=== PATIENT | female | born 1970 | race Caucasian/White ===

== ENCOUNTER 2019-08-12 06:18 | Emergency (ER) | payer MEDICAID ==
--- NOTE | 2019-08-12 06:28 | EDM.PDOC ---
ED HPI GENERAL MEDICAL PROBLEM - General Stated Complaint: SOB Time Seen by Provider: 08/12/19 06:25 Source of Information: Reports: Patient History Limitations: Reports: No Limitations - History of Present Illness INITIAL COMMENTS - FREE TEXT/NARRATIVE: 49-year-old female who reports beginning on Saturday she noted that she needed to use her inhaler more frequently and she had a rash on her face and neck and upper chest that was quite itchy and red and raised. The rash has come and gone has been fairly persistently coming associated with itching for the past 3 days and today she has noticed some feelings of increased wheezing and trouble breathing. She thinks it might be a new laundry soap that she has changed to as there are really no other exposures she feels. She has no pain. She rates her pain as a 0/10. No nausea or vomiting. No sore throat. No nasal congestion. She has been eating and drinking normally. She is having no trouble swallowing. No weakness or dizziness. There are no other associated signs or symptoms. There are no other modifying factors. She does report that she was started on a new medication for blood pressure about 2 weeks ago. She has had no symptoms until Saturday of this week. There are no other associated signs or symptoms. There are no other modifying factors. Onset: Other (3 days) Duration: Getting Worse Location: Reports: Generalized Quality: Reports: Other (Itching) Severity: Severe Improves with: Reports: None Worsens with: Reports: None Context: Reports: Other (As above) Associated Symptoms: Reports: Nausea/Vomiting (Mild nausea), Shortness of Breath Treatments [employer]TER: Reports: Other (see below) (Albuterol inhaler) - Related Data Allergies Allergy/AdvReac Type Severity Reaction Status Date / Time aspirin Allergy Other Verified 08/12/19 06:41 ibuprofen Allergy Other Verified 08/12/19 06:41 latex Allergy Other Verified 08/12/19 06:41 morphine Allergy Other Verified 08/12/19 06:41 ranitidine [From Zantac] Allergy Other Verified 08/12/19 06:41 Sulfa (Sulfonamide Allergy Other Verified 08/12/19 06:41 Antibiotics) Home Meds: Home Meds diphenhydrAMINE [Benadryl] 50 mg PO QID #20 cap 08/12/19 [Rx] predniSONE [Prednisone] 60 mg PO DAILY 4 Days #12 tablet 08/12/19 [Rx] Past Medical History Cardiovascular History: Reports: Hypertension Respiratory History: Reports: Asthma Social & Family History - Tobacco Use Smoking Status *Q: Current Every Day Smoker - Alcohol Use Alcohol Use History: No - Living Situation & Occupation Occupation: Employed [employer] REACTION - Review of Systems Review Of Systems: See Below Constitutional: Reports: No Symptoms HEENT: Reports: Other (Physical position) Respiratory: Reports: Shortness of Breath, Wheezing Cardiovascular: Reports: No Symptoms Endocrine: Reports: No Symptoms GI/Abdominal: Reports: No Symptoms : Reports: No Symptoms Musculoskeletal: Reports: No Symptoms Skin: Reports: Rash, Urticaria Neurological: Reports: No Symptoms Psychiatric: Reports: No Symptoms Hematologic/Lymphatic: Reports: No Symptoms Immunologic: Reports: No Symptoms ED EXAM GENERAL NO PERIP PULSE - Physical Exam Exam: See Below Exam Limited By: No Limitations General Appearance: Alert, WD/WN Eye Exam: Bilateral Eye: EOMI, Normal Inspection, PERRL Ears: Normal External Exam, Hearing Grossly Normal Nose: Normal Inspection, Normal Mucosa, No Blood Throat/Mouth: Normal Inspection, Normal Lips, Normal Oropharynx, Normal Voice, No Airway Compromise Head: Atraumatic, Normocephalic Neck: Normal Inspection, Supple, Non-Tender, Full Range of Motion, Other ( Stridor) Respiratory/Chest: No Respiratory Distress, No Accessory Muscle Use, Chest Non- Tender, Wheezing, Other (Air movement somewhat decreased) Cardiovascular: Normal Peripheral Pulses, Regular Rate, Rhythm, No JVD GI/Abdominal: Normal Bowel Sounds, Soft, Non-Tender, No Organomegaly Back Exam: Normal Inspection Extremities: Normal Inspection, Normal Range of Motion, Non-Tender, No Pedal Edema, Normal Capillary Refill Neurological: Alert, Oriented, CN II-XII Intact, Normal Cognition, No Motor/ Sensory Deficits Psychiatric: Normal Affect Skin Exam: Warm, Dry, Intact, Normal Color Course - Vital Signs Last Recorded V/S: Last Vital Signs Temp 36.6 C 08/12/19 06:59 Pulse 98 08/12/19 06:59 Resp 14 08/12/19 06:59 BP 148/81 H 08/12/19 06:59 Pulse Ox 98 08/12/19 06:59 - Orders/Labs/Meds Orders: Active Orders 24 hr Category Date Time Status RT Aerosol Therapy [RC] ASDIRECTED Care 08/12/19 06:43 Active Sodium Chloride 0.9% [Normal Saline] 1,000 ml Med 08/12/19 06:45 Active IV ASDIRECTED Sodium Chloride 0.9% [Saline Flush] Med 08/12/19 06:42 Active 10 ml FLUSH ASDIRECTED PRN Peripheral IV Insertion Adult [OM.PC] Routine Oth 08/12/19 06:42 Ordered Medication Orders Sodium Chloride (Normal Saline) 1,000 mls @ 100 mls/hr IV ASDIRECTED MAGGI Last Admin: 08/12/19 06:57 Dose: 100 mls/hr Sodium Chloride (Saline Flush) 10 ml FLUSH ASDIRECTED PRN PRN Reason: Keep Vein Open Last Admin: 08/12/19 07:02 Dose: 10 ml Meds: Medications Generic Name Dose Route Start Last Admin Trade Name Freq PRN Reason Stop Dose Admin Sodium Chloride 1,000 mls @ 100 mls/hr 08/12/19 06:45 08/12/19 06:57 Normal Saline IV 100 mls/hr ASDIRECTED MAGGI Administration Sodium Chloride 10 ml 08/12/19 06:42 08/12/19 07:02 Saline Flush FLUSH 10 ml ASDIRECTED PRN Administration Keep Vein Open Discontinued Medications Generic Name Dose Route Start Last Admin Trade Name Freq PRN Reason Stop Dose Admin Albuterol 2.5 mg 08/12/19 06:42 08/12/19 06:57 Proventil Neb Soln NEB 08/12/19 06:43 2.5 mg ONETIME ONE Administration Albuterol/Ipratropium 3 ml 08/12/19 06:42 08/12/19 06:57 Duoneb 3.0-0.5 Mg/3 Ml NEB 08/12/19 06:43 3 ml ONETIME ONE Administration Diphenhydramine HCl 50 mg 08/12/19 06:42 08/12/19 06:57 Benadryl IVPUSH 08/12/19 06:43 50 mg ONETIME ONE Administration Methylprednisolone Sodium Succinate 125 mg 08/12/19 06:42 08/12/19 06:57 Solu-Medrol IVPUSH 08/12/19 06:43 125 mg ONETIME ONE Administration - Re-Assessments/Exams Free Text/Narrative Re-Assessment/Exam: 08/12/19 08:25: Patient has received Solu-Medrol 125 mg IV, Benadryl 50 mg IV and DuoNeb/albuterol neb combination and has been observed. Her rash is pretty much gone. The wheezing is resolved. She feels much improved and is ready for discharge at this point. Departure - Departure Time of Disposition: 08:45 Disposition: Home, Self-Care 01 Condition: Good (Improved) Clinical Impression: Urticaria, Wheezing Allergic reaction Qualifiers: Encounter type: initial encounter Qualified Code(s): T78.40XA - Allergy, unspecified, initial encounter - Discharge Information Prescriptions: diphenhydrAMINE [Benadryl] 50 mg PO QID #20 cap predniSONE [Prednisone] 60 mg PO DAILY 4 Days #12 tablet Instructions: Hives, [id number], Allergies, Adult Referrals: PCP,Unknown [Primary Care Provider] - Additional Instructions: You are having an allergic reaction with hives and some wheezing. As you our thinking, this may be related to the new laundry soap that you started using. You should avoid using this in the future. Use your albuterol inhaler as needed. Medication as prescribed (Benadryl 50 mg, prednisone). Drink plenty of fluids. Rest. Back to the emergency department for worsening rash, worse breathing or any other concerning sign or symptom. Sepsis Event Note - Focused Exam Vital Signs: Vital Signs Temp Pulse Resp BP Pulse Ox 08/12/19 06:59 36.6 C 98 14 148/81 H 98 Date Exam was Performed: 08/12/19 Time Exam was Performed: 08:50 - My Orders Last 24 Hours: My Active Orders 08/12/19 06:42 Sodium Chloride 0.9% [Saline Flush] 10 ml FLUSH ASDIRECTED PRN Peripheral IV Insertion Adult [OM.PC] Routine 08/12/19 06:43 RT Aerosol Therapy [RC] ASDIRECTED 08/12/19 06:45 Sodium Chloride 0.9% [Normal Saline] 1,000 ml IV ASDIRECTED - Assessment/Plan Last 24 Hours: My Active Orders 08/12/19 06:42 Sodium Chloride 0.9% [Saline Flush] 10 ml FLUSH ASDIRECTED PRN Peripheral IV Insertion Adult [OM.PC] Routine 08/12/19 06:43 RT Aerosol Therapy [RC] ASDIRECTED 08/12/19 06:45 Sodium Chloride 0.9% [Normal Saline] 1,000 ml IV ASDIRECTED
[2019-08-12] MEDS ORDERED: Albuterol 0.083% 2.5 MG/3 ML Neb Soln NEB ONE (06:42)
[2019-08-12] MEDS ORDERED: Albuterol/Ipratropium 3.0-0.5 MG/3 ML Neb Soln NEB ONE (06:42)
[2019-08-12] MEDS ORDERED: Sodium Chloride 0.9% 10 ML Syringe FLUSH PRN (06:42)
[2019-08-12] MEDS ORDERED: diphenhydrAMINE 50 MG/ML SDV IVPUSH ONE (06:42)
[2019-08-12] MEDS ORDERED: methylPREDNISolone Sodium Succinate 125 MG/2 ML SDV IVPUSH ONE (06:42)
[2019-08-12] MEDS ORDERED: Sodium Chloride 0.9% 1,000 ML IV SCH (06:45)
== END 2019-08-12 09:30 | disposition home or self-care (01) ==
LOC: FB.ED 06:18
DX: L50.0 Allergic urticaria (principal); R06.2 Wheezing; I10 Essential (primary) hypertension; J45.909 Unspecified asthma, uncomplicated; F17.200 Nicotine dependence, unspecified, uncomplicated; Z88.6 Allergy status to analgesic agent; Z88.5 Allergy status to narcotic agent; Z88.8 Allergy status to other drugs, medicaments and biological substances; Z91.040 Latex allergy status; Z88.2 Allergy status to sulfonamides; Z79.52 Long term (current) use of systemic steroids
CPT/HCPCS: 94640; 96361; 96374; 96375; 99284; J1200; J2930; J7030; J7620-GY

== ENCOUNTER 2020-04-16 16:23 | Emergency (ER) | payer MEDICAID, OTHER ==
[2020-04-16] MEDS ORDERED: Budesonide 0.5 MG/2 ML Neb Susp NEB ONE (16:34)
[2020-04-16] MEDS ORDERED: methylPREDNISolone Sodium Succinate 125 MG/2 ML SDV ONE (16:34)
[2020-04-16] MEDS ORDERED: methylPREDNISolone Sodium Succinate 125 MG/2 ML SDV IM ONE (16:34)
[2020-04-16] MEDS ORDERED: Albuterol/Ipratropium 3.0-0.5 MG/3 ML Neb Soln NEB ONE ×2 (16:34→17:05)
--- NOTE | 2020-04-16 16:40 | EDM.PDOC ---
ED HPI GENERAL MEDICAL PROBLEM - General Chief Complaint: Allergic Reaction Stated Complaint: BEE STING Time Seen by Provider: 04/16/20 16:35 Source of Information: Reports: Patient History Limitations: Reports: No Limitations - History of Present Illness INITIAL COMMENTS - FREE TEXT/NARRATIVE: states she was just stung by a bee : not 30mins before getting to ER has had bee sting before and she is allergic to bees had stung her on the left 2nd toe Also developed wheezing immediately , did take benadryl before coming to the ER Onset: Today Onset Date: 04/16/20 Onset Time: 16:00 Duration: Getting Worse Location: Reports: Face, Neck, Chest, Lower Extremity, Left Quality: Reports: Burning Severity: Moderate Improves with: Reports: Cold Therapy Context: Reports: Other (stung by bee on her left otoe) Associated Symptoms: Reports: Cough, Rash, Weakness Treatments [employer]PER[employer]OR [employer]: Reports: Other (see below) (benadryl) 2nd toe at the left foot Pain Score (Numeric/FACES): 9 - Related Data Allergies Allergy/AdvReac Type Severity Reaction Status Date / Time aspirin Allergy Other Verified 04/16/20 18:23 ibuprofen Allergy Other Verified 04/16/20 18:23 latex Allergy Other Verified 04/16/20 18:23 morphine Allergy Other Verified 04/16/20 18:23 ranitidine [From Zantac] Allergy Other Verified 04/16/20 18:23 Sulfa (Sulfonamide Allergy Other Verified 04/16/20 18:23 Antibiotics) Home Meds: Home Meds Albuterol Sulfate 1 applic IH QID PRN 08/12/19 [History] Budesonide/Formoterol [Symbicort 80-4.5 MCG] 1 puff INH BID 08/12/19 [History] Losartan/Hydrochlorothiazide [Losartan-HCTZ 50-12.5 MG] 1 each PO DAILY 08/12/19 [History] diphenhydrAMINE [Benadryl] 50 mg PO QID #20 cap 08/12/19 [Rx] predniSONE [Prednisone] 60 mg PO DAILY 4 Days #12 tablet 08/12/19 [Rx] Albuterol [Proventil Neb Soln] 2.5 mg NEB Q6HR #1 box 04/16/20 [Rx] Triamcinolone Acetonide [Triamcinolone Acetonide 0.5% Oint] 15 gm TOP BID #2 tube 04/16/20 [Rx] predniSONE [Prednisone] 50 mg PO DAILY #5 tablet 04/16/20 [Rx] Past Medical History Cardiovascular History: Reports: Hypertension Respiratory History: Reports: Asthma Musculoskeletal History: Reports: Other (See Below) Other Musculoskeletal History: osteomylitis - Past Surgical History HEENT Surgical History: Reports: Adenoidectomy, Myringotomy w Tube(s), Tonsillectomy GI Surgical History: Reports: Appendectomy, Cholecystectomy Social & Family History - Living Situation & Occupation Occupation: Employed [employer] REACTION - Review of Systems Review Of Systems: See Below Constitutional: Reports: No Symptoms HEENT: Reports: No Symptoms, Rhinitis. Denies: Throat Pain, Throat Swelling Respiratory: Reports: Shortness of Breath, Wheezing, Cough, Sputum. Denies: Pleuritic Chest Pain Cardiovascular: Reports: No Symptoms Endocrine: Reports: No Symptoms GI/Abdominal: Reports: No Symptoms : Reports: No Symptoms Musculoskeletal: Reports: No Symptoms Skin: Reports: Rash Neurological: Reports: No Symptoms ED EXAM GENERAL NO PERIP PULSE - Physical Exam Exam: See Below Exam Limited By: No Limitations General Appearance: Alert, WD/WN, No Apparent Distress, Obese Eye Exam: Bilateral Eye: EOMI Ears: Normal External Exam Nose: Normal Inspection Throat/Mouth: Normal Inspection Head: Normocephalic Neck: Supple, Non-Tender Respiratory/Chest: Decreased Breath Sounds, Rhonchi, Wheezing Cardiovascular: Regular Rate, Rhythm GI/Abdominal: Soft, Non-Tender Extremities: Increased Warmth, Redness (on the tip of the left second toe) Neurological: Alert, Oriented, CN II-XII Intact Psychiatric: Normal Affect Course - Vital Signs Last Recorded V/S: Last Vital Signs Temp 36.7 C 04/16/20 17:40 Pulse 91 04/16/20 17:40 Resp 20 04/16/20 17:40 BP 152/74 H 04/16/20 17:40 Pulse Ox 97 04/16/20 17:40 - Orders/Labs/Meds Meds: Medications Discontinued Medications Generic Name Dose Route Start Last Admin Trade Name Freq PRN Reason Stop Dose Admin Albuterol/Ipratropium 3 ml 04/16/20 16:34 04/16/20 16:44 Duoneb 3.0-0.5 Mg/3 Ml NEB 04/16/20 16:35 3 ml ONETIME ONE Administration Albuterol/Ipratropium 3 ml 04/16/20 17:05 04/16/20 17:11 Duoneb 3.0-0.5 Mg/3 Ml NEB 04/16/20 17:06 3 ml ONETIME ONE Administration Budesonide 0.5 mg 04/16/20 16:34 04/16/20 16:43 Pulmicort NEB 04/16/20 16:35 0.5 mg ONETIME ONE Administration Hydrocortisone 1 gm 04/16/20 17:12 04/16/20 17:31 Hydrocortisone 1% Oint TOP 04/16/20 17:13 1 applic NOW STA Administration Methylprednisolone Sodium Succinate 125 mg 04/16/20 16:34 04/16/20 16:46 Solu-Medrol IM 04/16/20 16:35 Not Given ONETIME ONE Methylprednisolone Sodium Succinate Confirm 04/16/20 16:34 04/16/20 16:41 Solu-Medrol Administered 04/16/20 16:35 Not Given Dose 125 mg .ROUTE .STK-MED ONE Methylprednisolone Sodium Succinate 125 mg 04/16/20 16:46 04/16/20 16:49 Solu-Medrol IVPUSH 04/16/20 16:47 125 mg ONETIME ONE Administration - Re-Assessments/Exams Free Text/Narrative Re-Assessment/Exam: 04/16/20 17:38 pt did feel better after Neb x2 , solumedrol , cold compress to toe, Wheezing did stop 04/16/20 17:39 Departure - Departure Time of Disposition: 17:50 Disposition: Home, Self-Care 01 Condition: Fair Clinical Impression: Allergic reaction to bee sting, Wheezing Allergic reaction Qualifiers: Encounter type: initial encounter Qualified Code(s): T78.40XA - Allergy, unspecified, initial encounter - Discharge Information *PRESCRIPTION DRUG MONITORING PROGRAM REVIEWED*: Not Applicable *COPY OF PRESCRIPTION DRUG MONITORING REPORT IN PATIENT TIFFANIE: Not Applicable Prescriptions: predniSONE [Prednisone] 50 mg PO DAILY #5 tablet Albuterol [Proventil Neb Soln] 2.5 mg NEB Q6HR #1 box Triamcinolone Acetonide [Triamcinolone Acetonide 0.5% Oint] 15 gm TOP BID #2 tube Instructions: Allergies, Adult, [id number], Bee, Wasp, or Hornet Sting, Adult Referrals: PCP,None [Ordering Only Provider] - Forms: ED Department Discharge Additional Instructions: 1) Elevate foot and apply cold compress to the affected area of the toe 2) Continue with Neb every 4 hrs for at least 24 hrs 3) Start prednisone tomorrow Sepsis Event Note (ED) - Focused Exam Vital Signs: Vital Signs Temp Pulse Resp BP Pulse Ox 04/16/20 17:40 36.7 C 91 20 152/74 H 97 04/16/20 16:25 36.7 C 96 17 149/70 H 99
[2020-04-16] MEDS ORDERED: methylPREDNISolone Sodium Succinate 125 MG/2 ML SDV IVPUSH ONE (16:46)
[2020-04-16] MEDS ORDERED: Hydrocortisone 1% Oint 28 GM Tube TOP STA (17:12)
== END 2020-04-16 17:55 | disposition home or self-care (01) ==
LOC: FB.ED 16:23
DX: T63.441A Toxic effect of venom of bees, accidental (unintentional), initial encounter (principal); R06.2 Wheezing; I10 Essential (primary) hypertension; E66.9 Obesity, unspecified; Z88.2 Allergy status to sulfonamides; Z88.5 Allergy status to narcotic agent; Z91.040 Latex allergy status; Z88.6 Allergy status to analgesic agent; Z68.42 Body mass index [BMI] 45.0-49.9, adult; Z90.49 Acquired absence of other specified parts of digestive tract; Z79.899 Other long term (current) drug therapy
CPT/HCPCS: 94640; 96374; 99284; A9270; J2930; J7620-GY

== ENCOUNTER 2020-04-25 16:04 | Emergency (ER) | payer OTHER ==
[2020-04-25] MEDS ORDERED: traMADol 50 MG Tab PO ONE (16:05)
--- NOTE | 2020-04-25 17:10 | EDM.PDOC ---
ED HPI GENERAL MEDICAL PROBLEM - General Chief Complaint: Asthma Stated Complaint: LUNGS Time Seen by Provider: 04/25/20 17:10 Source of Information: Reports: Patient History Limitations: Reports: No Limitations - History of Present Illness INITIAL COMMENTS - FREE TEXT/NARRATIVE: 50-year-old female who reports that for the last 2 weeks she has been having cough with wheezing. She reports that she also has been having intermittent pains in her upper chest that are sharp and seemed to worse when she breathes they seem to come and go lasting for minutes at a time and then there soreness after this. These symptoms have been increasingly worsening over the past 2 weeks and becoming more frequent. She also notices that she has been using her albuterol nebulizer frequently and it helps for a little bit but then she has wheezing again. She feels that she is becoming more short of breath with time and that her wheezing is not going away with her medications. She was recently stung by a bee and had some allergic reaction to this and was on prednisone. She is currently off prednisone for the past 2 days and she feels that her symptoms have worsened since then. He really has 0/10 pain now but the pain can be as high as a 10/10 and she was told to come to the emergency department by [facility] provider for further evaluation for this. She has had no nausea or vomiting. She has been able to eat and drink normally. She has noted no fever. She has then able to swallow normally. There are no other associated signs or symptoms. There are no other modifying factors. 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.) - Related Data Allergies Allergy/AdvReac Type Severity Reaction Status Date / Time aspirin Allergy Other Verified 04/25/20 16:09 ibuprofen Allergy Other Verified 04/25/20 16:09 latex Allergy Other Verified 04/25/20 16:09 morphine Allergy Other Verified 04/25/20 16:09 ranitidine [From Zantac] Allergy Other Verified 04/25/20 16:09 Sulfa (Sulfonamide Allergy Other Verified 04/25/20 16:09 Antibiotics) Home Meds: Home Meds Albuterol Sulfate 1 applic IH QID PRN 08/12/19 [History] Losartan/Hydrochlorothiazide [Losartan-HCTZ 50-12.5 MG] 1 each PO DAILY 08/12/19 [History] Albuterol [Proventil Neb Soln] 2.5 mg NEB Q6HR #1 box 04/16/20 [Rx] Azithromycin [Zithromax] 250 mg PO DAILY #4 tab 04/25/20 [Rx] predniSONE [Prednisone] 1 dose PO QAM 12 Days #21 tablet 04/25/20 [Rx] traMADol [Ultram] 50 mg PO Q6H PRN #12 tab 04/25/20 [Rx] Past Medical History Cardiovascular History: Reports: Hypertension Respiratory History: Reports: Asthma Musculoskeletal History: Reports: Other (See Below) Other Musculoskeletal History: osteomylitis - Infectious Disease History Infectious Disease History: Reports: Chicken Pox - Past Surgical History HEENT Surgical History: Reports: Adenoidectomy, Myringotomy w Tube(s), Tonsillectomy GI Surgical History: Reports: Appendectomy, Cholecystectomy Female Surgical History: Reports: Section (History), Other (See Below) (Several laparoscopies for ovarian cystectomies.) Social & Family History - Family History Family Medical History: Noncontributory - Tobacco Use Smoking Status *Q: Current Every Day Smoker Years of Tobacco use: 35 Packs/Tins Daily: 1 Second Hand Smoke Exposure: Yes - Caffeine Use Caffeine Use: Reports: Coffee - Recreational Drug Use Recreational Drug Use: No - Living Situation & Occupation Occupation: Employed ED ROS GENERAL - Review of Systems Review Of Systems: See Below Constitutional: Reports: No Symptoms HEENT: Reports: Other (Nasal congestion.) Respiratory: Reports: Shortness of Breath, Wheezing, Pleuritic Chest Pain, Cough Cardiovascular: Reports: Chest Pain GI/Abdominal: Reports: No Symptoms : Reports: No Symptoms Musculoskeletal: Reports: No Symptoms Skin: Reports: No Symptoms Neurological: Reports: No Symptoms Hematologic/Lymphatic: Reports: No Symptoms Immunologic: Reports: No Symptoms ED EXAM, GENERAL - Physical Exam Exam: See Below Exam Limited By: No Limitations General Appearance: Alert, Mild Distress, Obese Eye Exam: Bilateral Eye: EOMI, Normal Inspection Ears: Normal External Exam, Hearing Grossly Normal Ear Exam: Bilateral Ear: Auricle Normal Nose: No Blood, Nasal Drainage Throat/Mouth: Normal Oropharynx, Normal Voice, No Airway Compromise Head: Atraumatic, Normocephalic Neck: Normal Inspection, Supple, Non-Tender, Full Range of Motion Respiratory/Chest: No Accessory Muscle Use, Wheezing (Bilaterally), Prolonged Expiration. No: Rales Cardiovascular: Normal Peripheral Pulses, Regular Rate, Rhythm, No JVD Peripheral Pulses: 2+: Radial (L), Radial (R), Dorsalis Pedis (L), Dorsalis Pedis (R) GI/Abdominal: Normal Bowel Sounds, Soft, Non-Tender, No Mass Back Exam: Normal Inspection Extremities: Normal Inspection, Normal Range of Motion, Non-Tender, No Pedal Edema, Normal Capillary Refill Neurological: Alert, Oriented, CN II-XII Intact, Normal Cognition, No Motor/Sensory Deficits Psychiatric: Normal Affect Skin Exam: Warm, Dry, Intact, Normal Color, No Rash EKG INTERPRETATION EKG Date: 04/25/20 Time: 16:31 Rhythm: NSR Rate (Beats/Min): 83 [place]: Normal (83) P-Wave: Present QRS: Normal ST-T: Other (Nonspecific T-wave abnormalities.) QT: Normal Comparison: NA - No Prior EKG (Essentially normal EKG.) Course - Vital Signs Last Recorded V/S: Last Vital Signs Temp 36.7 C 04/25/20 17:11 Pulse 88 04/25/20 17:11 Resp 18 04/25/20 17:11 BP 148/74 H 04/25/20 17:11 Pulse Ox 96 04/25/20 17:11 - Orders/Labs/Meds Orders: Active Orders 24 hr Category Date Time Status Chest 1V Frontal [CR] Stat Exams 04/25/20 18:10 Taken Peripheral IV Insertion Adult [OM.PC] Routine Oth 04/25/20 17:22 Ordered EKG 12 Lead [EK] Routine Ther 04/25/20 17:22 Ordered Labs: Laboratory Tests 04/25/20 04/25/20 04/25/20 Range/Units 17:40 17:40 17:40 WBC 13.1 H (4.5-12.0) X10-3/uL RBC 5.00 (3.23-5.20) x10(6)uL Hgb 15.0 (11.5-15.5) g/dL Hct 43.8 (30.0-51.3) % MCV 87.5 (80-96) fL MCH 29.9 (27.7-33.6) pg MCHC 34.2 (32.2-35.4) g/dL RDW 13.0 (11.5-15.5) % Plt Count 294 (125-369) X10(3)uL MPV 9.2 (7.4-10.4) fL Neut % (Auto) 64.1 (46-82) % Lymph % (Auto) 26.3 (13-37) % [place] % (Auto) 4.9 (4-12) % Eos % (Auto) 4 (1.0-5.0) % Baso % (Auto) 1 (0-2) % Neut # (Auto) 8.4 H (1.6-8.3) # Lymph # (Auto) 3.5 (0.6-5.0) # [place] # (Auto) 0.6 (0.0-1.3) # Eos # (Auto) 0.5 (0.0-0.8) # Baso # (Auto) 0.1 (0.0-0.2) # D-Dimer, Quantitative (0.0-0.59) mg/LFEU Sodium 138 (135-145) mmol/L Potassium 4.4 (3.5-5.3) mmol/L Chloride 102 (100-110) mmol/L Carbon Dioxide 25 (21-32) mmol/L BUN 15 (7-18) mg/dL Creatinine 0.8 (0.55-1.02) mg/dL Est Cr Clr Drug Dosing TNP Estimated GFR (MDRD) > 60 (>60) BUN/Creatinine Ratio 18.8 (9-20) Glucose 104 (80-116) mg/dL Calcium 9.2 (8.6-10.2) mg/dL Magnesium 1.9 (1.8-2.5) mg/dL Total Bilirubin 0.5 (0.1-1.3) mg/dL AST 14 (5-25) IU/L ALT 38 H (12-36) U/L Alkaline Phosphatase 85 (56-112) IU/L Troponin I 8.9 (4.0-60.3) pg/mL NT-Pro-B Natriuret Pep (<=125) pg/mL Total Protein 7.6 (6.0-8.0) g/dL Albumin 3.8 (3.5-5.2) g/dL Globulin 3.8 g/dL Albumin/Globulin Ratio 1.0 04/25/20 04/25/20 Range/Units 17:40 17:40 WBC (4.5-12.0) X10-3/uL RBC (3.23-5.20) x10(6)uL Hgb (11.5-15.5) g/dL Hct (30.0-51.3) % MCV (80-96) fL MCH (27.7-33.6) pg MCHC (32.2-35.4) g/dL RDW (11.5-15.5) % Plt Count (125-369) X10(3)uL MPV (7.4-10.4) fL Neut % (Auto) (46-82) % Lymph % (Auto) (13-37) % [place] % (Auto) (4-12) % Eos % (Auto) (1.0-5.0) % Baso % (Auto) (0-2) % Neut # (Auto) (1.6-8.3) # Lymph # (Auto) (0.6-5.0) # [place] # (Auto) (0.0-1.3) # Eos # (Auto) (0.0-0.8) # Baso # (Auto) (0.0-0.2) # D-Dimer, Quantitative 0.47 (0.0-0.59) mg/LFEU Sodium (135-145) mmol/L Potassium (3.5-5.3) mmol/L Chloride (100-110) mmol/L Carbon Dioxide (21-32) mmol/L BUN (7-18) mg/dL Creatinine (0.55-1.02) mg/dL Est Cr Clr Drug Dosing Estimated GFR (MDRD) (>60) BUN/Creatinine Ratio (9-20) Glucose (80-116) mg/dL Calcium (8.6-10.2) mg/dL Magnesium (1.8-2.5) mg/dL Total Bilirubin (0.1-1.3) mg/dL AST (5-25) IU/L ALT (12-36) U/L Alkaline Phosphatase (56-112) IU/L Troponin I (4.0-60.3) pg/mL NT-Pro-B Natriuret Pep 131 H (<=125) pg/mL Total Protein (6.0-8.0) g/dL Albumin (3.5-5.2) g/dL Globulin g/dL Albumin/Globulin Ratio Meds: Medications Discontinued Medications Generic Name Dose Route Start Last Admin Trade Name Freq PRN Reason Stop Dose Admin Albuterol 5 mg 04/25/20 17:24 04/25/20 17:49 Proventil Neb Soln NEB 04/25/20 17:25 5 mg ONETIME ONE Administration Albuterol/Ipratropium 3 ml 04/25/20 17:24 04/25/20 17:49 Duoneb 3.0-0.5 Mg/3 Ml NEB 04/25/20 17:25 3 ml ONETIME ONE Administration Azithromycin 500 mg 04/25/20 18:51 04/25/20 18:56 Zithromax PO 04/25/20 18:52 500 mg ONETIME ONE Administration Methylprednisolone Sodium Succinate 125 mg 04/25/20 17:25 04/25/20 17:49 Solu-Medrol IVPUSH 04/25/20 17:26 125 mg ONETIME ONE Administration Sodium Chloride 10 ml 04/25/20 17:22 Saline Flush FLUSH ASDIRECTED PRN Keep Vein Open - Radiology Interpretation Free Text/Narrative:: One view chest x-ray shows no definite infiltrate. - Re-Assessments/Exams Free Text/Narrative Re-Assessment/Exam: 04/25/20 18:45: Patient reports that she feels much improved. Her breathing is much better. She still has some soreness in her chest and it is reproducible with palpation and with deep breath at this point. Her d-dimer and troponin was normal. With the amount time she has been having the chest pain, I feel that this rules out AL as her EKG is reassuring as well. The pain in her chest appears to be musculoskeletal. Her exam shows much improved air movement with almost no wheezing now. I will plan on treating the patient with Zithromax for 5 day course. I will also place her on prednisone over a longer taper again (12 days) and I will give her prescription for tramadol for pain. She was given a take-home pack of the tramadol and a prescription to take home as well. A prescription for the prednisone was sent to [facility]. She is to follow-up with her primary provider as needed. Percussions and reasons for return to the emergency department discussed with the patient while she was in the emergency department ever detailed in the patient's discharge instructions. Departure - Departure Time of Disposition: 19:00 Disposition: Home, Self-Care 01 Condition: Good (Improved) Clinical Impression: Acute exacerbation of extrinsic asthma, Musculoskeletal chest pain Asthmatic bronchitis Qualifiers: Asthma severity: moderate Asthma persistence: persistent Asthma complication type: with acute exacerbation Qualified Code(s): J45.41 - Moderate persistent asthma with (acute) exacerbation - Discharge Information Prescriptions: predniSONE [Prednisone] 1 dose PO QAM 12 Days #21 tablet traMADol [Ultram] 50 mg PO Q6H PRN #12 tab PRN Reason: Moderate to severe pain Azithromycin [Zithromax] 250 mg PO DAILY #4 tab Instructions: How to Use a Nebulizer, Adult, Chest Wall Pain, [id number], Nonspecific Chest Pain, Adult, [id number], Asthma, Adult, [id number] Referrals: PCP,None [Primary Care Provider] - Forms: ED Department Discharge, ED Return to Work/School Form Additional Instructions: Your blood tests were all reassuringly normal. Your EKG was reassuring and showed no evidence of a heart attack. Your heart enzyme test was normal and this rules out a heart attack. You do not appear to be having any problem with your heart at this time. Also a screening blood tests for blood clots was negative and this rules out blood clots as well. This chest pain appears to be from the muscles in your chest wall. Continue to do the albuterol nebulizer treatments every 4 hours as needed at home. Increase your fluid intake. You can take Tylenol 1000 mg by mouth every 6 hours as needed for pain. Medication as prescribed for more severe pain (tramadol 50 mg). Other medication as prescribed (Zithromax, prednisone). Follow-up with your primary doctor as needed. Back to the emergency department for worse breathing, unrelenting vomiting, worsening chest pain or any other concerning sign or symptom. Sepsis Event Note (ED) - Focused Exam Vital Signs: Vital Signs Temp Pulse Resp BP Pulse Ox 04/25/20 17:11 36.7 C 88 18 148/74 H 96 - My Orders Last 24 Hours: My Active Orders 04/25/20 17:22 Peripheral IV Insertion Adult [OM.PC] Routine EKG 12 Lead [EK] Routine 04/25/20 18:10 Chest 1V Frontal [CR] Stat - Assessment/Plan Last 24 Hours: My Active Orders 04/25/20 17:22 Peripheral IV Insertion Adult [OM.PC] Routine EKG 12 Lead [EK] Routine 04/25/20 18:10 Chest 1V Frontal [CR] Stat
[2020-04-25] MEDS ORDERED: Sodium Chloride 0.9% 10 ML Syringe FLUSH PRN (17:22)
[2020-04-25] MEDS ORDERED: Albuterol 0.083% 2.5 MG/3 ML Neb Soln NEB ONE (17:24)
[2020-04-25] MEDS ORDERED: Albuterol/Ipratropium 3.0-0.5 MG/3 ML Neb Soln NEB ONE (17:24)
[2020-04-25] MEDS ORDERED: methylPREDNISolone Sodium Succinate 125 MG/2 ML SDV IVPUSH ONE (17:25)
[2020-04-25] MEDS ORDERED: Azithromycin 500 MG Tab PO ONE (18:51)
--- NOTE | 2020-04-25 22:51 | CR ---
CHEST TWO VIEWS INDICATION: Cough, shortness of breath, wheezing. Two AP upright views of the chest were obtained 04/25/2020 and compared with 12/20/2008. Evidence of exogenous obesity is noted and is markedly increased compared with the previous study. The heart did not appear grossly enlarged but was prominent. Overlying EKG leads are noted. A definite active infiltrate or effusion was not identified. IMPRESSION: No definite acute process. When clinically possible, full inspiration PA and lateral views of the chest may be helpful. MTDD
== END 2020-04-25 19:20 | disposition home or self-care (01) ==
LOC: FB.ED 16:04
DX: J45.41 Moderate persistent asthma with (acute) exacerbation (principal); R07.89 Other chest pain; I10 Essential (primary) hypertension; J45.909 Unspecified asthma, uncomplicated; F17.210 Nicotine dependence, cigarettes, uncomplicated; Z88.6 Allergy status to analgesic agent; Z88.5 Allergy status to narcotic agent; Z88.2 Allergy status to sulfonamides; Z88.8 Allergy status to other drugs, medicaments and biological substances; Z90.49 Acquired absence of other specified parts of digestive tract
CPT/HCPCS: 36415; 71045; 80053; 83735; 83880; 84484; 85025; 85379; 93005; 94640; 96374; 99285-25; A9270-GY; J2930; J7620-GY